=== PATIENT | male | born 1995 | race Two or more races ===

== ENCOUNTER 2017-02-19 08:35 | Emergency (ER) | payer SELFPAY ==
[~2017-02-19] VITALS: Ht 172.7 cm; Wt 70.0 kg
[2017-02-19 10:25] VITALS: BP 133/80
[2017-02-19] MEDS ORDERED: IBUPROFEN 600MG TABLET PO ONE (10:30)
== END 2017-02-19 10:36 | disposition home or self-care (01) ==
LOC: ER 08:35
DX: S06.9X9A Unspecified intracranial injury with loss of consciousness of unspecified duration, initial encounter (principal); Y04.8XXA Assault by other bodily force, initial encounter; Y93.89 Activity, other specified; Y92.512 Supermarket, store or market as the place of occurrence of the external cause; R03.0 Elevated blood-pressure reading, without diagnosis of hypertension
CPT/HCPCS: 70450; 70486; 72125; 99284